=== PATIENT | female | born 1995 | race Caucasian/White ===

== ENCOUNTER 2025-03-14 17:28 | Emergency (ER) | payer OTHER, SELFPAY ==
[2025-03-14] VITALS (8 sets, daily range): BP systolic 107–133; BP diastolic 68–83; PULSE 77–98; RESP 16–21; TEMP 36.3; O2SAT 98–100; BMI 34.3
--- NOTE | 2025-03-14 17:42 | DI.RAD.S_ITS ---
PROCEDURE: XR CHEST 1V INDICATIONS: chest pain TECHNIQUE: One view of the chest was acquired. COMPARISON: None. FINDINGS: Surgical changes and devices: None. Lungs and pleura: Lungs are clear. No pleural effusions or pneumothorax. Mediastinum: Mediastinal contours appear normal. Heart size is normal. Bones and chest wall: No suspicious bony lesions. Overlying soft tissues appear unremarkable. IMPRESSION: No acute cardiopulmonary abnormalities or focal consolidation. Dictated by: Jens Andujar M.D. on 03/14/2025 at 18:12 Approved by: Jens Andujar M.D. on 03/14/2025 at 18:18
--- NOTE | 2025-03-14 17:46 | EKG_ITS ---
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
[2025-03-14] MEDS: ONDANSETRON 4 MG/2 ML INJ IV (17:50)
[2025-03-14 18:02] LABS: Add Manual Diff / Slide Review NO; Basophils Absolute Auto 100 /uL (0-100); Basophils Percent Auto 0.5 % (0-2); Eosinophils Absolute Auto 200 /uL (0-450); Eosinophils Percent Auto 1.2 % (2-4); Hematocrit 41.2 % (36-46); Hemoglobin 13.8 g/dL (12.0-16.0); Lymphocytes Absolute Auto 2500 /uL (1100-4500); Lymphocytes Percent Auto 18.3 % (25-40); Mean Corpuscular HGB Conc 33.5 % (30-36); Mean Corpuscular Hemoglobin 27.8 PG (26-34); Mean Corpuscular Volume 82.9 fL (80-100); Monocytes Absolute Auto 1000 /uL (0-900); Monocytes Percent Auto 7.2 % (3-14); Neutrophils Absolute Auto 10100 /uL (1500-7000); Neutrophils Percent Auto 72.8 % (50-75); Platelet Count 306 X10^3/uL (150-400); Red Blood Cell Count 4.97 X10^6/uL (4.0-5.2); Red Cell Distribution Width 13.5 % (11.6-14.8); White Blood Cell Count 13.8 X10^3/uL (4.5-11.0)
[2025-03-14 18:09] LABS: Prothrombin Time 11.6 SECONDS (9.4-12.5)
[2025-03-14 18:12] LABS: PTT Partial Thromboplastin Tim 34 SECONDS (25.1-36.5)
[2025-03-14 18:13] LABS: Alanine Aminotransferase 27 IU/L (<35); Albumin 4.8 g/dL (3.5-5.0); Albumin Globulin Ratio 1.3 (1.0-2.8); Alkaline Phosphatase 77 U/L (38-126); Aspartate Aminotransferase 26 IU/L (14-36); BUN Creatinine Ratio 15.7 (6-22); Bilirubin Total 0.4 mg/dL (0.2-1.3); Blood Urea Nitrogen 11 mg/dL (7-17); Calcium 9.6 mg/dL (8.4-10.2); Carbon Dioxide 23 mmol/L (22-32); Chloride 102 mmol/L (98-107); Creatine Kinase 75 U/L (30-135); Estimated Glomerular Filt Rate > 60 mL/min (>60); Globulin 3.6 g/dL (1.7-4.1); Glucose 132 mg/dL (70-99); HEMOLYSIS 17 (0-50); Lipase 84 U/L (23-300); Magnesium 1.9 mg/dL (1.6-2.3); Potassium 3.8 mmol/L (3.4-5.1); Sodium 137 mmol/L (137-145); Total Protein 8.4 g/dL (6.3-8.2)
[2025-03-14 18:25] LABS: NT-proBNP (BNP-Adult 18+) < 20 pg/mL (<125); Troponin I < 0.012 ng/mL (0.01-0.034)
--- NOTE | 2025-03-14 20:12 | ED.CHESTPAIN ---
HPI - Chest Pain General Chief Complaint: Dizziness Stated Complaint: lightheaded, dizzy, chest pain, nausea Time Seen by Provider: 03/14/25 20:12 Source: patient Mode of arrival: Wheelchair History of Present Illness HPI narrative: 29-year-old female without any significant past medical history presents from home for evaluation of lightheadedness, chest pain, nausea, vomiting, states that it is worse whenever she opens her eyes. She denies any trauma or falls. At time of evaluation patient NIH of 0, no focal deficits. He states that the symptoms ?hit or like a truck. She denies any other symptoms such as visual disturbances headache abdominal pain or any other GI/ symptoms time. Related Data Previous Rx's Medication Instructions Recorded meclizine 25 mg tablet 25 mg PO BID PRN dizziness 1 week 03/14/25 #14 tabs Allergies Allergy/AdvReac Type Severity Reaction Status Date / Time No Known Drug Allergies Allergy Verified 03/14/25 17:47 Review of Systems Review of Systems Narrative: General: Denies fever, chills, weight loss HEENT: Denies headache, eye drainage, eye irritation, head trauma, sore throat, voice change Cardiovascular: Positive chest pain, denies palpitations, tachycardia Respiratory: Denies any shortness of breath, cough, wheeze, stridor GI/: Denies any abdominal pain, nausea, vomiting, diarrhea, bright red blood per rectum, melanotic stools, urinary frequency, urinary retention, dysuria, hematuria MSK: Denies any joint pain, muscle pains, swelling Skin: Denies any rashes, lesions, discoloration Neuro: Positive lightheadedness, dizziness Denies any headache, fainting, weakness Psych: Denies SI/HI Exam Narrative Exam Narrative: General: Cooperative, well-developed, not in acute distress HEENT: Normocephalic, atraumatic, PERRLA, normal sclera, eyelids normal Neck: Active full range of motion, atraumatic Chest: Normal to inspection, negative crepitus, no overlying erythema ecchymosis Respiratory: Normal respiratory effort, not in acute respiratory distress, clear to auscultation bilaterally negative cough, wheeze, tachypnea, rhonchi, rales Cardiology: Regular rate rhythm negative gallop, murmur, rubs GI/: No tenderness to palpation, soft, non rigid, normal to inspection, exam deferred MSK: Full active range of motion in all 4 extremities, atraumatic, no tenderness to palpation of any bony prominences Skin: No rashes or lesions noted Neuro: Alert awake oriented x3, moves all 4 extremities spontaneously, cranial nerves intact, able to answer all questions appropriately follows commands appropriately Psych: Cooperative, negative suicidal or homicidal ideations Initial Vital Signs Initial Vital Signs: Vital Signs Temperature 97.4 F L 03/14/25 17:37 Pulse Rate 89 03/14/25 17:37 Respiratory Rate 16 03/14/25 17:37 Blood Pressure 123/71 03/14/25 17:37 Pulse Oximetry 100 03/14/25 17:37 Oxygen Delivery Method Room Air 03/14/25 17:37 Course Orders Ordered: ED Orders 03/14/25 17:42 XR chest 1V Stat EKG-12 Lead Stat 03/14/25 17:50 Complete Blood Count AUTO DIFF Stat Comprehensive Metabolic Panel Stat Lipase Stat Magnesium Stat NT-proBNP (BNP-Adult 18+) Stat PTT Partial Thromboplastin Rafael Stat Prothrombin Time INR Stat Troponin & CK Cardiac Panel Stat Ondansetron HCl (Ondansetron 4 Mg/2 Ml Inj) 4 mg IV NOW PRN PRN Reason: Nausea And Vomiting Last Admin: 03/14/25 17:50 Dose: 4 mg Documented By: ANOPO Discontinued Medications Aspirin (Aspirin 81 Mg Chew Tab) 324 mg PO NOW ONE Stop: 03/14/25 17:43 Last Admin: 03/14/25 17:51 Dose: Not Given Documented By: CHARLA Diphenhydramine HCl (Diphenhydramine 50 Mg/Ml Vial) 25 mg IV NOW ONE Stop: 03/14/25 20:25 Last Admin: 03/14/25 20:34 Dose: 25 mg Documented By: KINZA Sodium Chloride (Normal Saline 0.9%) 1,000 mls @ 1,000 mls/hr IV BOLUS ONE Stop: 03/14/25 21:23 Last Infusion: 03/14/25 21:35 Dose: Infused Documented By: Admin: 03/14/25 20:37 Dose: 1,000 mls/hr Documented By: AI Meclizine HCl (Meclizine Hcl 12.5 Mg Tablet) 25 mg PO NOW ONE Stop: 03/14/25 20:25 Last Admin: 03/14/25 20:34 Dose: 25 mg Documented By: KINZA Metoclopramide HCl (Metoclopramide 10 Mg/2 Ml Inj) 10 mg IV NOW ONE Stop: 03/14/25 20:25 Last Admin: 03/14/25 20:35 Dose: 10 mg Documented By: KINZA Vital Signs Vital signs: Vital Signs - 8 hr 03/14/25 17:37 03/14/25 19:01 03/14/25 19:03 Temperature 97.4 F L Pulse Rate 89 83 84 Respiratory Rate 16 16 Blood Pressure 123/71 133/83 Pulse Oximetry 100 100 100 Oxygen Delivery Method Room Air 03/14/25 19:30 03/14/25 20:04 03/14/25 20:30 Temperature Pulse Rate 77 92 H 82 Respiratory Rate 21 19 Blood Pressure 117/68 Pulse Oximetry 100 100 98 Oxygen Delivery Method 03/14/25 21:00 03/14/25 21:31 Temperature Pulse Rate 79 98 H Respiratory Rate 20 20 Blood Pressure 107/68 Pulse Oximetry 99 100 Oxygen Delivery Method MDM - Chest Pain Differential Diagnosis Differential diagnosis: Likely chest pain and other (ACS, pneumonia, electrolyte abnormality) Lab Data 03/14/25 17:50 03/14/25 17:50 Labs: Lab Results 03/14/25 Range/Units 17:50 WBC 13.8 H (4.5-11.0) X10^3/uL RBC 4.97 (4.0-5.2) X10^6/uL Hgb 13.8 (12.0-16.0) g/dL Hct 41.2 (36-46) % MCV 82.9 (80-100) fL MCH 27.8 (26-34) PG MCHC 33.5 (30-36) % RDW 13.5 (11.6-14.8) % Plt Count 306 (150-400) X10^3/uL Neut % (Auto) 72.8 (50-75) % Lymph % (Auto) 18.3 L (25-40) % [place] % (Auto) 7.2 (3-14) % Eos % (Auto) 1.2 L (2-4) % Baso % (Auto) 0.5 (0-2) % Neut # (Auto) 99314 H (6299-0846) /uL Lymph # (Auto) 2500 (8144-5312) /uL [place] # (Auto) 1000 H (0-900) /uL Eos # (Auto) 200 (0-450) /uL Baso # (Auto) 100 (0-100) /uL PT 11.6 (9.4-12.5) SECONDS INR 1.0 (0.9-1.3) APTT 34 (25.1-36.5) SECONDS Sodium 137 (137-145) mmol/L Potassium 3.8 (3.4-5.1) mmol/L Chloride 102 (98-107) mmol/L Carbon Dioxide 23 (22-32) mmol/L BUN 11 (7-17) mg/dL Creatinine 0.70 (0.52-1.04) mg/dL Estimated GFR > 60 (>60) mL/min BUN/Creatinine Ratio 15.7 (6-22) Glucose 132 H (70-99) mg/dL Calcium 9.6 (8.4-10.2) mg/dL Magnesium 1.9 (1.6-2.3) mg/dL Total Bilirubin 0.4 (0.2-1.3) mg/dL AST 26 (14-36) IU/L ALT 27 (<35) IU/L Alkaline Phosphatase 77 (38-126) U/L Total Creatine Kinase 75 (30-135) U/L Troponin I < 0.012 (0.01-0.034) ng/mL NT-Pro-B Natriuret Pep < 20 (<125) pg/mL Total Protein 8.4 H (6.3-8.2) g/dL Albumin 4.8 (3.5-5.0) g/dL Globulin 3.6 (1.7-4.1) g/dL Albumin/Globulin Ratio 1.3 (1.0-2.8) Lipase 84 (23-300) U/L Point of Care Testing Test Results Negative Urine Dip Bedside Urine Glucose Negative Bedside Urine Bilirubin - Negative Bedside Urine Ketone - Negative Urine Specific [place] 1.010 Bedside Urine Occult Blood - Negative Bedside Urine pH 8.0 Bedside Urine Protein - Negative Bedside Urine Urobilinogen - Negative Bedside Urine Nitrite - Negative Bedside Urine Leukocytes - Negative Esterase Imaging Data Chest x-ray: Radiologist's Impression: [address] [address] XRay Report Signed Patient: Rose Staples MR#: [id number] : 1995 Acct:[id number] Age/Sex: 29 / F Date of Service: 03/14/25 Loc: ED Accession Number: [id number] Procedure: XR chest 1V Ordering Provider: Jenelle Sullivan D.O. PROCEDURE: XR CHEST 1V INDICATIONS: chest pain TECHNIQUE: One view of the chest was acquired. COMPARISON: None. FINDINGS: Surgical changes and devices: None. Lungs and pleura: Lungs are clear. No pleural effusions or pneumothorax. Mediastinum: Mediastinal contours appear normal. Heart size is normal. Bones and chest wall: No suspicious bony lesions. Overlying soft tissues appear unremarkable. IMPRESSION: No acute cardiopulmonary abnormalities or focal consolidation. ECG Data Interpretation: EKG interpreted ED physician sinus 99 beats per minute QTC [address] changes no STEMI MDM Narrative Medical decision making narrative: 29-year-old female presenting for lightheaded dizziness nausea and vomiting and chest pain, states it started spontaneously several hours ago, she states that whenever she opens her eyes and moves symptoms were worse. Patient with lab work unremarkable, mild leukocytosis most likely stress secondary to nausea and vomiting, troponin negative, EKG nonischemic in nature, patient with chest x-ray without any acute cardiopulmonary abnormality. Patient received fluids, Reglan, Benadryl, meclizine with improvement of symptoms, patient was able to stand bear weight ambulate unassisted here, symptoms more likely peripheral vertigo versus central vertigo. Patient with heart score 0 Discharge Plan Departure Patient Disposition: Home Clinical Impression: Dizziness Instructions: DI for Vertigo Activity Restrictions/Additional Instructions: Please follow up with the primary care doctor Please read the discharge instructions sheet carefully and bring all papers to all doctor follow-up visits, as it may contain information that your doctor may want to see. Disease processes change and evolve, if your symptoms worsen or if you develop any new symptoms that are concerning to you please return for evaluation. Your evaluation today does not show any evidence of any life-threatening/serious illnesses requiring admission to the hospital or surgery. Please follow-up with your doctor for re-evaluation in approximately 1 day. Seek immediate medical attention for any worrisome symptoms. *If you do not have a primary care provider please contact the [facility] Resource line at [phone]. They will ask some questions about your medical history and help get you set up with a doctor in the community. Prescriptions: New meclizine 25 mg tablet 25 mg PO BID PRN (Reason: dizziness) 7 Days Qty: 14 0RF Referrals: Arjun Landeros MD [Physician] - () Stand Alone Forms: Patient Portal/API/Survey
[2025-03-14] MEDS: MECLIZINE HCL 12.5 MG TABLET 25 MG PO (20:34)
[2025-03-14] MEDS: diphenhydrAMINE 50 MG/ML VIAL 25 MG IV (20:34)
[2025-03-14] MEDS: METOCLOPRAMIDE 10 MG/2 ML INJ IV (20:35)
[2025-03-14] MEDS: SODIUM CHLORIDE 0.9% 1,000 ML 1000 ML IV (20:37)
== END 2025-03-14 21:59 | disposition home or self-care (01) ==
PROVIDERS: Emergency Medicine; Emergency Provider Student in an Organized Health Care Education/Training Program
DX: R42 Dizziness and giddiness (principal); R07.9 Chest pain, unspecified; R11.2 Nausea with vomiting, unspecified
CPT/HCPCS: 36415; 71045; 80053; 81003; 81025; 82550; 83690; 83735; 83880; 84484; 85025; 85610; 85730; 93005; 93010; 96361; 96374; 96375; 99284; J1200; J2405; J2765